=== PATIENT | female | born 1985 | race Caucasian/White ===

== ENCOUNTER 2020-06-25 18:09 | Emergency (ER) | payer BC, OTHER ==
[~2020-06-25] VITALS: Ht 162.6 cm; Wt 68.0 kg
--- NOTE | 2020-06-25 18:09 | NUR ---
BROUGHT BACK TO BED #5 AND TRIAGED. REPORT GIVEN TO BEAU
[2020-06-25 18:10] VITALS: BP_SYST 135
--- NOTE | 2020-06-25 18:15 | NUR ---
Pt came to ER complaining of L chest pain burning in nature radiating to back. Pt resting in gurney comfortably, does not show any signs of distress, VSS, awaiting MD.
--- NOTE | 2020-06-25 18:20 | NUR ---
ER at bedside examining patient.
[2020-06-25] MEDS: NACL 0.9% 1,000 ML IV ONE (19:15)
--- NOTE | 2020-06-25 19:15 | NUR ---
Received report from Barron GUERRA. Pt resting comfortably in bed.
[2020-06-25 19:36] LABS: BASOPHILS % (AUTO) 0.3 % (0.0-2.0); EOSINOPHILS # (AUTO) 0.2 K/uL (0.0-0.4); EOSINOPHILS % (AUTO) 2.3 % (0.0-4.0); HEMATOCRIT 37.5 % (36-48); HEMOGLOBIN 12.8 g/dL (12.0-16.0); MEAN CORPUSCULAR HEMOGLOBIN 32 pg (27-31); MEAN CORPUSCULAR HGB CONC 34 % (32-36); MEAN CORPUSCULAR VOLUME 95 fL (79.0-98.0); MONOCYTES # (AUTO) 0.6 K/uL (0.0-1.0); NEUTROPHILS # (AUTO) 5.6 K/uL (1.8-7.7); NEUTROPHILS % (AUTO) 66.4 % (40.0-70.0); PLATELET COUNT (AUTO) 247 K/uL (130-430); RED BLOOD CELL COUNT(AUTO) 3.95 MIL/uL (4.2-6.2); RED CELL DISTRIBUTION WIDTH 13.6 % (9.0-15.0); WHITE BLOOD COUNT (AUTO) 8.5 K/uL (4.8-10.8)
[2020-06-25 19:45] LABS: CALCIUM 8.8 mg/dL (8.4-11.0); CREATININE 0.99 mg/dL (0.55-1.30); POTASSIUM 4.4 mmol/L (3.5-5.1)
[2020-06-25 19:51] LABS: ALBUMIN 3.6 g/dL (3.4-4.8); TOTAL BILIRUBIN 0.5 mg/dL (0.0-1.0)
[2020-06-25 20:16] LABS: BILIRUBIN,URINE NEGATIVE (NEGATIVE); BLOOD, URINE NEGATIVE (NEGATIVE); CLARITY/URINE CLEAR (CLEAR); COLOR,URINE YELLOW (YELLOW); GLUCOSE,URINE NEGATIVE (NEGATIVE); KETONES,URINE NEGATIVE (NEGATIVE); LEUKOCYTE ESTERASE ,URINE NEGATIVE (NEGATIVE); NITRITE, URINE NEGATIVE (NEGATIVE); PROTEIN URINE NEGATIVE (NEGATIVE); UROBILINOGEN,URINE 0.2 (0.2-1.0)
--- NOTE | 2020-06-25 21:07 | NUR ---
Dr. Alcantara at bedside updating patient.
[2020-06-25] MEDS: PANTOPRAZOLE SODIUM 40 MG/VIAL (PROTONIX) IVP ONE (21:30)
[2020-06-25] MEDS: KETOROLAC TROMETHAMINE 30 MG VIAL IVP ONE (21:31)
--- NOTE | 2020-06-25 21:45 | NUR ---
Patient resting quietly. No acute distress noted. Vital signs within normal range.
[2020-06-25] MEDS ORDERED: IBUP-1969 PO (22:22)
[2020-06-25] MEDS ORDERED: PRO40 PO (22:22)
[2020-06-25 22:59] VITALS: BP_SYST 128
--- NOTE | 2020-06-25 22:59 | NUR ---
Patient given written and verbal discharge instructions and verbalizes understanding. ER MD discussed with patient the results and treatment provided. Patient in stable condition. ID arm band removed. IV catheter removed intact and dressing applied, no active bleeding. Rx of MOTRIN, PROTONIX given. Patient educated on pain management and to follow up with PMD. Pain Scale 2/10. Opportunity for questions provided and answered. Medication side effect fact sheet provided.
== END 2020-06-25 22:59 | disposition home or self-care (01) ==
LOC: SED 18:09
DX: R07.89 Other chest pain (principal); F41.9 Anxiety disorder, unspecified; K76.0 Fatty (change of) liver, not elsewhere classified
CPT/HCPCS: 36415; 71045; 80053; 81003; 84484; 85025; 93005; 96361; 96374; 96375; 99285; C9113; J1885; J7030

== ENCOUNTER 2021-05-18 15:55 | Emergency (ER) | payer OTHER ==
[~2021-05-18] VITALS: Ht 162.6 cm; Wt 70.3 kg
[~2021-05-18 15:55] MED LIST: IBUP-1969 PO; PRO40 PO
--- NOTE | 2021-05-18 16:00 | NUR ---
Patient triaged and placed in waiting room. VSS and patient appears in no acute distress at this time. Accompanied by self , awaiting available bed, and MD notified of need for MSE.
--- NOTE | 2021-05-18 16:02 | NUR ---
Pt brought by self, A&Ox4, pt presents to ER with headache after she hit head with a car while getting out, denies N/V, skin pink and warm, cap refill <3.
[2021-05-18 17:03] VITALS: BP_SYST 128
--- NOTE | 2021-05-18 21:59 | NUR ---
ER examining patient in the triage room.
[2021-05-18] MEDS ORDERED: IBUP-1969 PO (22:11)
[2021-05-18 22:22] VITALS: BP_SYST 123
--- NOTE | 2021-05-18 22:22 | NUR ---
Patient given written and verbal discharge instructions and verbalizes understanding. ER MD discussed with patient the results and treatment provided. Patient in stable condition. ID arm band removed. Rx of Ibuprofen given. Patient educated on pain management and to follow up with PMD. Pain Scale 7/10. Opportunity for questions provided and answered. Medication side effect fact sheet provided.
== END 2021-05-18 22:22 | disposition home or self-care (01) ==
LOC: SED 15:55
DX: S09.90XA Unspecified injury of head, initial encounter (principal); W22.8XXA Striking against or struck by other objects, initial encounter; Y93.89 Activity, other specified; Y92.89 Other specified places as the place of occurrence of the external cause; Y99.8 Other external cause status
CPT/HCPCS: 99282